=== PATIENT | male | born 1985 | race African-American/Black ===

== ENCOUNTER 2017-08-03 19:53 | Emergency (ER) | payer OTHER ==
[~2017-08-03] VITALS: Ht 180.3 cm; Wt 68.0 kg
[2017-08-03] MEDS ORDERED: ACETAMINOPHEN 325 MG TAB PO ONE ×2 (20:07→20:15)
[2017-08-03 22:15] VITALS: BP 128/78
== END 2017-08-04 00:12 | disposition home or self-care (01) ==
LOC: EDBD 19:53 → ER 19:59
DX: S73.101A Unspecified sprain of right hip, initial encounter (principal); S63.501A Unspecified sprain of right wrist, initial encounter; S63.91XA Sprain of unspecified part of right wrist and hand, initial encounter; V86.69XA Passenger of other special all-terrain or other off-road motor vehicle injured in nontraffic accident, initial encounter; Y93.89 Activity, other specified; Y99.8 Other external cause status; Y92.9 Unspecified place or not applicable
CPT/HCPCS: 73110; 73130; 73502